=== PATIENT | male | born 1980 | race Caucasian/White ===

== ENCOUNTER 2016-06-23 16:43 | Emergency (ER) | payer OTHER ==
[~2016-06-23] VITALS: Ht 175.3 cm; Wt 65.9 kg
[2016-06-23 16:57] VITALS: BP_SYST 151; BP_SYST 160; BP_DIAS 107; BP_DIAS 94; PULSE 100; PULSE 78; RESP 16; RESP 20; O2SAT 100; O2SAT 98
--- NOTE | 2016-06-23 19:08 | ED.REPORT ---
HPI-General Illness Date of Service June 23, 2016 ED Provider: Giovany Morales MD Pt is a 35 y/o male presenting to the ED c/o with multiple vague medical complaints. He c/o right ear pain with foul-smelling drainage in the mornings, bilateral low back pain on/off for years. He states he has "black gas coming out of his kidneys which hit his mother's skin causing her face to deteriorate" . Records indicate history of meth abuse. He denies fever, chills, abdominal pain. Denies SI, HI. States he wants to leave. Nursing Notes Stated Complaint: POSS KIDNEY/EAR INFECTION Chief Complaint: General Complaint Nursing Notes Reviewed: Yes Allergies: Coded Allergies: Penicillins (Verified Allergy, Unknown, 06/23/16) Scheduled Ofloxacin (Ofloxacin) 5 Ml Drops 5 ML OT QID General Time Seen by MD: 19:00 Chief Complaint Multip medical complaints Hx Obtained From: Patient Arrived By: Walk-in Sudden in Onset?: No Onset Occurred: 4 days ago Symptom Duration: Since onset Location: : Back Quality: Painful Severity: Current: Mild Severity: Maximum: Mild Past Medical History Past Medical History Denies Past Surgical History denies Smoking History Current Every Day Smoker Social History Alcohol Use: "Social" Drug Use: Meth, THC Occupation single, no work or school Ambulatory Status Independent Review of Systems Full Review of Systems Constitutional: Denies: Chills, Fever Ears / Nose / Throat: Reports: Ear drainage right, Earache right GI: Denies: Abdominal pain Musculoskeletal: Reports: Lumbar pain Complete sys rev & neg: except as marked. Physical Exam Vital Signs Vital Signs Date Time Temp Pulse Resp B/P Pulse Ox O2 Delivery O2 Flow Rate FiO2 06/23/16 21:25 80 16 145/92 99 Room Air 06/23/16 16:57 36.0 78 16 151/94 100 Room Air Initial VS: Reviewed, Vital signs normal Head / Eyes: Atraumatic, Normocephalic, PERRL Neck: Supple, Full range of motion Respiratory: Breath sounds normal, Clear to auscultation, No respiratory distress Cardiovascular: Regular rate & rhythm, Heart sounds normal, Intact distal pulses Abdomen / GI: Soft, Non-tender Extremities: Vascular intact, Neuro intact, No swelling, No tenderness Skin: Warm, Dry, No cyanosis Neurologic: Alert, Oriented, Nonfocal Psychiatric: Mood/affect normal, Behavior normal, Normal thought content General/Constitutional: Awake, Alert, No acute distress, Cooperative, Not toxic appearing ENT: Atraumatic, Airway patent Erythema and crusting of the right external canal Interpretation & Diagnostics Lab Results Interpretation Test 06/23/16 19:20 Urine Color Yellow (YELLOW) Urine Appearance Clear (CLEAR,HAZY) Urine pH 7.0 (5.0-8.0) Urine Specific [place] 1.010 (1.003-1.035) Urine Protein Negativemg/dL (NEG,TRACE) Urine Glucose (UA) Negativemg/dL (NEGATIVE) Urine Ketones Negativemg/dL (NEGATIVE) Urine Occult Blood Negative (NEGATIVE) Urine Nitrite Negative (NEGATIVE) Urine Bilirubin Negative (NEGATIVE) Urine Urobilinogen Normalmg/dL (NORMAL) Urine Leukocyte Esterase Negative (NEGATIVE) Urine RBC 0-2/hpf (0-2) Urine WBC 0-5/hpf (0-5) Urine Epithelial Cells None/hpf (NONE-MOD) Urine Crystals None seen (NONE SEEN) Urine Bacteria None/hpf (NONE-FEW) Urine Hyaline Casts None/lpf (NONE) Urine Granular Casts None seen (NONE SEEN) Urine Waxy Casts None seen (NONE SEEN) Urine Red Blood Cell Casts None seen (NONE SEEN) Urine White Blood Cell Casts None seen (NONE SEEN) Urine Mucus None seen (None Seen) Urine Trichomonas None seen (NONE SEEN) Urine Yeast None (NONE SEEN) Urinalysis Comment None Urine Culture Reflexed Not indicated Re-Eval/Medical Decision Med Decision/Clinical Course Pt is a 35 y/o male presenting to the ED c/o with multiple vague medical complaints. He c/o right ear pain with foul-smelling drainage in the mornings, bilateral low back pain on/off for years. He states he has "black gas coming out of his kidneys which hit his mother's skin causing her face to deteriorate" . Records indicate history of meth abuse. He denies fever, chills, abdominal pain. Denies SI, HI. States he wants to leave. Here in the emergency department the patient is afebrile stable vital signs and examination as above. There is evidence of right otitis externa. Urinalysis is unremarkable. I am not sure what the patient's concern is about "black gas coming out of his kidneys" however I suspect there is an underlying component of substance abuse and mental health issues. That being said the patient does not desire hospitalization admission and is otherwise linear/organized without any SI or HI. He is not holdable from a psychiatric perspective. I have prescribed a course of topical antibiotics for his otitis externa. He is advised to follow up with his primary care physician. I feel that he is appropriate for discharge. Prior to discharge follow-up and return precautions were reviewed in detail with the patient who verbalized understanding and agreement with the plan. The patient was discharged in stable condition. Time of Eval: 20:48 Re-Evaluation/Progress Note: Pt rechecked. Informed pt of plan for treatment. Pt understands and agrees with plan for treatment. F/U instructions and RTER warnings given. All questions addressed. Counseled Regarding: Diagnosis, Need for follow-up, When/why to return to ED Discharge & Departure Primary Impression: Otitis externa of right ear Otitis externa type: unspecified type Chronicity: acute Qualified Code: H60.501 - Unspecified acute noninfective otitis externa, right ear Additional Impressions: Polysubstance abuse Anxiety Disposition: Home Discharge Condition All VS Reviewed: Yes Condition: Stable Patient Instructions: Otitis Externa (GEN) Additional Instructions: The external canal of your right ear appears to be infected. The inner ear appeared normal. I do not suspect any life-threatening condition. Your urine analysis was normal today, there is no sign of kidney or bladder infection. Please take the antibiotics as directed. Follow-up with a primary care doctor regarding your other concerns. The [facility] is happy to see you. Return to the emergency department for any new or worsening symptoms. Referrals: [facility] Scribe Attestation Portions of this note were transcribed by Anish Donohue. I, Dr. Morales personally performed the history, physical exam and medical decision-making; I reviewed and confirmed the accuracy of the information in the transcribed note. Signed by Tania Johnson, 06/23/16 - 2029 Giovany Morales MD June 23, 2016 19:08 ANISH DONOHUE June 23, 2016 20:11
[2016-06-23 19:35] LABS: APPEARANCE,URINE CLEAR (CLEAR,HAZY); COLOR,URINE YELLOW (YELLOW); OCCULT BLOOD,URINE NEGATIVE (NEGATIVE); UROBILINOGEN,URINE NORMAL (NORMAL)
[2016-06-23] MEDS ORDERED: OFLO5DRO9 OT (21:04)
[2016-06-23 21:25] VITALS: BP 145/92; PULSE 80; RESP 16; O2SAT 99
== END 2016-06-23 21:19 | disposition home or self-care (01) ==
LOC: SED 16:43
DX: H60.501 Unspecified acute noninfective otitis externa, right ear (principal); F19.10 Other psychoactive substance abuse, uncomplicated; F41.9 Anxiety disorder, unspecified; F17.200 Nicotine dependence, unspecified, uncomplicated; Z88.0 Allergy status to penicillin

== ENCOUNTER 2016-10-03 16:07 | Emergency (ER) | payer OTHER ==
[~2016-10-03] VITALS: Ht 172.7 cm; Wt 63.6 kg
[~2016-10-03 16:07] MED LIST: OFLO5DRO9 OT
[2016-10-03 16:11] VITALS: BP 175/83; PULSE 97; RESP 18; O2SAT 96
--- NOTE | 2016-10-03 16:31 | ED.REPORT ---
HPI-General Illness Date of Service Oct 03, 2016 ED Provider: Sanchez Pritchett MD Pt is a 35 y/o male w/ a hx of prior methamphetamine abuse, anxiety, presenting to the ED with multiple vague complaints. The patient says that he has "kidney and heart damage" and he here only for a shot that he has had in the past which at that time"revitalized him". He says that when he has a warmth bath he experiences a headache which he describes as "gas shooting out of his kidney and into his brain" and that he is experiencing left flank pain and back pain described as "kidney pain that is talking to his brain" which causes him to pass out. He also reports that he he is unable to have a BM and that he feels like he is paralyzed. He denies rash, fever. He denies illicit drug use and smokes marijuana frequently. He was recently in [place] for a "lumbar dislocation" and was given Naproxen. He is homeless living in the [facility]. He also says that he has "worms coming out of his hair" which are "attacking everybody else". Anxiety caused by being homeless and other life stressors has also been a problem for him for quite some time. No PCP. Nursing Notes Stated Complaint: HEART/KIDNEY DAMAGE Chief Complaint: General Complaint Nursing Notes Reviewed: Yes Allergies: Coded Allergies: Penicillins (Verified Allergy, Unknown, 06/23/16) Scheduled Ofloxacin (Ofloxacin) 5 Ml Drops 5 ML OT QID General Time Seen by MD: 16:23 Chief Complaint Multip medical complaints Hx Obtained From: Patient Arrived By: Walk-in Sudden in Onset?: No Onset Occurred: Onset unknown Symptom Duration: Since onset Location: : Back Quality: Painful Severity: Current: Mild Severity: Maximum: Mild Recent Healthcare: No recent doctor visit, No recent hospitalization Past Medical History Past Medical History History of methamphetamine abuse Anxiety Denies otherwise Past Surgical History denies Smoking History Current Every Day Smoker Social History Homeless living in the [facility] Alcohol Use: "Social" Drug Use: Meth, THC Occupation single, no work or school Ambulatory Status Independent Review of Systems Limited due to mental status Full Review of Systems Male: Reports Flank pain Neurologic: Reports: Headache Psychiatric: Reports: Anxiety Complete sys rev & neg: except as marked. Physical Exam Vital Signs Vital Signs Date Time Temp Pulse Resp B/P Pulse Ox O2 Delivery O2 Flow Rate FiO2 8/25/17 19:35 75 18 143/96 97 Room Air 10/03/16 16:11 36.7 97 18 175/83 96 Room Air Initial VS: Reviewed, Vital signs abnormal Head / Eyes: Atraumatic, Normocephalic ENT: Mucous membranes moist, Conjunctiva normal Neck: Full range of motion Respiratory: Breath sounds normal, Clear to auscultation, No respiratory distress Cardiovascular: Regular rate & rhythm, Heart sounds normal, Intact distal pulses Abdomen / GI: Soft, Non-tender, No guarding, No rebound, No distention Neurologic: Alert, Oriented, Nonfocal General/Constitutional: Awake, Alert, No acute distress, Cooperative, Not toxic appearing Wide variety of vague complaints. Back: Full range of motion, Painless range of motion, No CVA tenderness Skin: Atraumatic, Warm, Dry, Intact No signs of any lesions PSYCH: Pressured speech. Tangential thought process. Paranoid delusions Delusions of parasitosis No expression of SI or HI. When his anxiety and mental health issues are brought up he becomes hostile and threatening and has no interest in pursuing that. Interpretation & Diagnostics Lab Results Interpretation Result Diagram: 10/03/16 1645 Test 10/03/16 16:45 10/03/16 18:17 Sodium Level 139mEq/L (134-144) Potassium Level 3.8mEq/L (3.5-5.2) Chloride Level 101mEq/L (97-108) Carbon Dioxide Level 25mmol/L (18-29) Blood Urea Nitrogen 15mg/dL (6-20) Creatinine 0.73mg/dL (0.76-1.27) Estimat Glomerular Filtration Rate 131mL/min (>59) Glucose Level 122mg/dL (60-99) Calcium Level 9.3mg/dL (8.5-10.1) Total Bilirubin 1.4mg/dL (0.0-1.2) Aspartate Amino Transf (AST/SGOT) 16U/L (0-50) Alanine Aminotransferase (ALT/SGPT) 15U/L (0-44) Alkaline Phosphatase 73U/L (25-150) Total Protein 7.3g/dL (6.4-8.4) Albumin 4.8g/dL (3.4-5.0) Hold Hardy Top Tube Received (Received) Hold Urine Received (Received) Lab Results Interpretation: Urine tox: positive only for THC Re-Eval/Medical Decision Med Decision/Clinical Course Mutilple bizarre complaints and no objective findings that suggest an acute medical illness. Appears delusional pt totally not willing to engage in mental health care. Does not appear to be detainable. Source of Hx: Old records Time of Eval: 20:10 Re-Evaluation/Progress Note: When his anxiety and mental health issues are brought up he becomes hostile and threatening and wants to immediately leave. Counseled Regarding: Diagnosis, Lab results, Need for follow-up, When/why to return to ED Discharge & Departure Primary Impression: Delusions of parasitosis Disposition: Home Discharge Condition All VS Reviewed: Yes Condition: Stable Additional Instructions: We did not find an acute medical problem today. Please make an appointment at [facility] for further evaluation. We also advise mental health care- [facility] may also be able to do this for you. Referrals: Olimpia Lux MD Scribe Attestation Portions of this note were transcribed by Anish Donohue. I, Dr. Pritchett, personally performed the history, physical exam and medical decision-making; I reviewed and confirmed the accuracy of the information in the transcribed note. Sanchez Pritchett MD Oct 03, 2016 16:31 ANISH DONOHUE Oct 03, 2016 17:22
[2016-10-03 19:35] VITALS: BP 143/96; PULSE 75; RESP 18; O2SAT 97
== END 2016-10-03 20:18 | disposition home or self-care (01) ==
LOC: SED 16:07
DX: F22 Delusional disorders (principal); F41.9 Anxiety disorder, unspecified; F17.200 Nicotine dependence, unspecified, uncomplicated; F15.21 Other stimulant dependence, in remission; F12.10 Cannabis abuse, uncomplicated; Z59.0 Homelessness

== ENCOUNTER 2016-10-09 15:45 | Emergency (ER) | payer OTHER | END 2016-10-09 16:53 | disposition left against medical advice (07) | LOC: SED 15:45 | DX: Z79.4 Long term (current) use of insulin (principal); Z53.21 Procedure and treatment not carried out due to patient leaving prior to being seen by health care provider ==